=== PATIENT | male | born 1930 | race Caucasian/White ===

== ENCOUNTER 2016-06-08 07:12 | Day surgery (SDC) | payer MEDICARE ==
[2016-06-08] VITALS (10 sets, daily range): BP systolic 119–168; BP diastolic 57–89; PULSE 55–66; RESP 11–21; O2SAT 93–100
[~2016-06-08] VITALS: Ht 172.7 cm; Wt 72.7 kg
[~2016-06-08 07:12] MED LIST: CATHETER TIP IRRIGATION ONE; DONE5TAB30 PO; DORZ10DR18 OP; GLUC-91 PO; IBUP200C PO; Levofloxacin 500 mg/100 mL D5W IV ONE; MELA1TAB16 PO; MITOMYCIN IRRIGATION ONE; OMEG500C3 PO; ZOLP5TAB6 PO; sleep aid
[2016-06-08] MEDS ORDERED: fentaNYL-PF 50 mCg/mL 2 mL Inj ONE ×2 (07:13→11:46)
[2016-06-08] MEDS ORDERED: Propofol 10,000 mCg/mL 20 mL Inj ONE (07:13)
[2016-06-08] MEDS ORDERED: EPHEDrine/NS 5 mg/mL 5 mL Syringe ONE (07:13)
[2016-06-08] MEDS ORDERED: MetoCLOpramide 5 mg/mL 2 mL Inj ONE (07:13)
[2016-06-08] MEDS ORDERED: Dexamethasone 4 mg/mL Inj ONE (07:13)
[2016-06-08] MEDS ORDERED: Ondansetron 2 mg/mL 2 mL Inj ONE (07:13)
[2016-06-08] MEDS ORDERED: levoFLOXacin 500 mg/100 mL D5W Premix IV ONE (07:37)
[2016-06-08] MEDS ORDERED: CATHETER TIP IRRIGATION ONE (08:05)
[2016-06-08] MEDS ORDERED: MITOMYCIN IRRIGATION ONE ×2 (08:05→10:41)
[2016-06-08] MEDS: Lactated Ringer's 1,000 ML IV SCH ×4 (08:09→11:15)
[2016-06-08] MEDS ORDERED: Lactated Ringer's 500 ML IV PRN (09:40)
[2016-06-08] MEDS ORDERED: Phenylephrine 10,000 mCg/mL Inj IVPUSH PRN (09:40)
[2016-06-08] MEDS ORDERED: EPHEDrine Sulfate 50 mg/mL Inj IVPUSH PRN (09:40)
[2016-06-08] MEDS ORDERED: Ondansetron 2 mg/mL 2 mL Inj IVPUSH PRN (09:40)
[2016-06-08] MEDS ORDERED: Atropine 0.4 mg/mL Inj IVPUSH PRN (09:40)
[2016-06-08] MEDS ORDERED: hydrALAZINE 20 mg/mL Inj IVPUSH PRN (09:40)
[2016-06-08] MEDS ORDERED: MetoCLOpramide 5 mg/mL 2 mL Inj IVPUSH PRN (09:40)
[2016-06-08] MEDS ORDERED: HYDROmorphone 1 mg/mL Inj IVPUSH PRN (09:40)
[2016-06-08] MEDS ORDERED: Lactated Ringer's 1,000 ML IV SCH (09:40)
[2016-06-08] MEDS ORDERED: Labetalol 5 mg/mL 4 mL Inj IV PRN (09:40)
[2016-06-08] MEDS ORDERED: fentaNYL-PF 50 mCg/mL 2 mL Inj IVPUSH PRN (09:40)
--- NOTE | 2016-06-08 09:40 | PCM.HPANE ---
Patient Data Surgeon Admitting Provider: Attending Provider:Reynold Porras MD Primary Care Physician:Ralf Tripp MD Other Provider:[facility] Reason for Visit Bladder Tumor Ht/WT & BMI Height (Feet): 5 Height (Inches): 8.00 Weight (Kilograms): 72.700 Body Mass Index 24.00 Allergies Coded Allergies: No Known Allergies (Unverified , 10/25/12) Past Anesthesia History Anesthesia History: Denies:: Abnormal Airway, Anesthesia Reactions, Difficult Intubation, Fam Anesthesia Reaction, Fam Malignant Hypertherm, Malignant Hyperthermia Diabetes History Hx Diabetes?: No MRSA MRSA: No Medications Home Meds Incl Beta Dinesh: No Reported Medications Zolpidem 5 Mg Tablet5 Mg PO HS PRN For Insomnia Ref 0 06/07/16 Melatonin/Pyridoxine (Melatonin 5 mg Tablet)1 Each Tablet1 Each PO DAILY 06/07/16 Ibuprofen 200 Mg [id number] Mg PO QID PRN For Pain Ref 0 06/07/16 Gluc/Jaziel-MSM#1/Vit C/Festus/Bor (Djxtacb-Enqzy-CZI Complex Cplt)1 Each Tablet1 Each PO DAILY 06/07/16 [place]-3 Fatty Acids (Fish Oil)500 Mg [id number] Mg PO DAILY 06/07/16 Dorzolamide 10 Ml Drops1 Drop OP TID For Glaucoma #1 BOTTLE 06/07/16 Donepezil 5 Mg Tablet5 Mg PO HS Ref 0 06/07/16 Discontinued Reported Medications [sleep aid] No Conflict Check25 Mg HS PRN Insomnia 06/07/16 TMP-Sulfa DS-Expunged Drug, Do Not Renew! (Septra DS 160MG/800-Expunged Drug, Do Not Toy)1 Ea Tab1 Tab PO BID #20 TAB Dose on Trimethoprim component 10/25/12 Diphenhydramine Hcl (Sleep Aid)50 Mg/30 Ml Aalbaa78 Mg PO HSP 10/25/12 Tamsulosin-Expunged Drug, Do Not Renew! (Flomax-Expunged Drug, Do Not Renew!) 0.4 Mg Capsule0.4 Mg PO DAILY #30 CAP 10/25/12 Dorzolamide/Timolol/Pf (Cosopt Pf Eye Drops)1 Each Droperette1 Each OP TID 10/25/12 clonazePAM-Expunged Drug, Do Not Renew! 0.5 Mg Tablet0.5 Mg PO DAILY #30 TAB FOR ANXIETY 10/25/12 History History of ENT Problems?: Yes HEENT History: Denies:: Abnormal Airway Cataracts (hx of left vitrectomy) Difficult Intubation Dysphagia Hearing Problem TMJ (RT JAW "CLICK"-TMP ARTHRITIS) Denture Type: Full- Upper Full- Lower Hx of Heart Problems?: No Cardiovascular History: Denies:: AICD Atrial Fibrillation Chest Pain Hypertension Pacemaker Valvular Heart Disease Hx of Respiratory Problem?: No Respiratory History: Denies:: Asthma COPD Cough Hemoptysis Oxygen Administration Pneumonia Tuberculosis Use of C-PAP Machine Use of Inhalers / NEBS Hx Neurologic Problems?: Yes Neurological History: Positive for:: Dementia (mild on aricept) Denies:: CVA Headaches Multiple Sclerosis Parkinson's Disease Seizures TIA Other Neurological Pertinent: right foot numbness- per H+P note- related to spinal cord compression Hx of GI Problems?: No Gastrointestinal History: Denies:: Cirrhosis Diverticulitis Gastroesphageal Reflux Hiatal Hernia Rectal Bleeding Hx of Problems?: Yes Genitourinary History: Denies:: Kidney Stones Urinary Tract Infection Other Pertinent History: bladder tumor current admission problem Male Hx: Positive for:: Prostate Problems (hx of TURP) Denies:: Scrotal Mass Testicular Surgery Skin History: Denies:: History Skin Disorders? Pressure Ulcers Hx Musculoskeletal Problems?: No Musculoskeletal History: Positive for:: Osteoarthritis Denies:: Back Injury (C/OF BACK PAIN) Fibromyalgia Joint Replacement Musculoskeletal Trauma Systemic Lupus Hx of Psycho/Social Problems?: Yes Psycho Social History: Denies:: Anxiety Hx Depression Hx Surgeries?: Yes (cysto, turp, tonsil, left vitrectomy) Hx Any Other Health Problems?: Yes Other History: Denies:: Cancer Endocrine Disease Hospitalization Thyroid Disease History Blood Transfusions: Denies:: Blood Transfusions Hx Diabetes: No Hx Alcohol Use: NoHx Substance Use: NoHave You Smoked inLast 12 mo: No Stop/Bang S-Snoring: Do You Snore Loudly: No T-Tired: feel tired, fatigued: No O-Obsered: Observed not breath: No P-Blood Pressure: treated: No B- Body Mass Index > 35 kg/m2: No A- Age over 50: Yes N- Neck Large Circumference: No G- Gender Male: Yes TERI Total Score: 2 Risk Assessment Category Category 1A: Patient has history of documented sleep apnea, and HAS NOT received any narcotic, sedative or anesthesia administration during this stay. Category 1B: Patient has history of documented sleep apnea, and HAS received any narcotic , sedative or anesthesia administration during this stay Category 2: Patient has SUSPECTED Obstructive Sleep Apnea, and HAS received any narcotic , sedative or anesthesia administration during this stay. Category 3: Patient has SUSPECTED Obstructive Sleep Apnea and HAS NOT received narcotic, sedative or anesthesia administration during this stay. Category 4: Outpatient in Procedural Areas with known sleep apnea or who screen positive for High Risk via the STOP/BANG questionnaire. Exam Exam Vital Signs Vital Signs Date Time Temp Pulse Resp B/P Pulse Ox O2 Delivery O2 Flow Rate FiO2 06/08/16 07:45 36 65 16 150/84 94 Room Air General Appearance: Alert, Oriented X3, Cooperative, No Acute Distress HEENT/AIRWAY: MP 2 Lungs: Clear to Auscultation, Normal Air Movement Heart: Exam Unremarkable, Regular Rate/Rhythm, No Murmurs/Rubs/Gallops Plan Impression Patient chart reviewed, patient interviewed and anesthestic plan with risks, benefits, and alternatives discussed, and informed consent obtained. NPO Status: MN ASA Physical Status: ASA2 Mod Systemic Disease Anesthetic Plan: GA Bene/Risks/Altern/Consents: Yes HP Complete Prior to Induction: Yes Rogelio Dinh MD Jun 08, 2016 08:10
[2016-06-08] MEDS ORDERED: Belladonna Alk-Opium 60 mg Rectal Suppository RECTAL ONE ×2 (09:49→09:53)
--- NOTE | 2016-06-08 11:13 | PCM.SURGPO ---
Immediate Operative Note Date of Surgery: Jun 08, 2016 Pre Operative Diagnosis Bladder tumors, bladder lesions Post Operative Diagnosis Bladder tumors, bladder lesions, urethral stricture Procedure Cystoscopy, transurethral resection of bladder tumors (>5cm), bladder biopsies, dilation of urethral stricture, and Mitomycin intravesical instillation Surgeon and Green Tire Inspector Surgeon: Reynold Porras MD Assistants: None Findings Cystoscopy revealed mild bulbar urethral stricture, which was bluntly dilated using cystoscope. Cystoscopy revealed low-lying bladder tumors (L lateral wall bladder tumors x 2 (each approx. 1.5-2cm) and L superolateral wall bladder tumors x 2 (each approx. 1cm)), mildly edematous and mildly erythematous bladder lesions on R lateral wall and L posterior wall. Bladder tumors and bladder lesions were resected using bipolar loop electrocautery. B/L ureteral orifices were seen to be intact and well-preserved at the end of the case. Mitomycin intravesical instillation was performed at the end of the case. Complications There were no periprocedural complications identified. Surgical Specimen Removed: Yes Specimen sent to Pathology: Yes Surgical Specimen description: L lateral wall bladder tumors, L superolateral wall bladder tumors, R lateral wall bladder lesion, L posterior wall bladder lesion Anesthetic Administered: GA Grafts, Implants: Other (20F Coude Ventura catheter clamped) Output, Estimated Blood Loss: <5 Blood Admin during surgery: No Additional information Patient to be discharged home when stable, to return to see me in 5-7 days for post-op visit and trial of void. Reynold Porras MD Jun 08, 2016 11:13
--- NOTE | 2016-06-08 11:52 | PCM.ANEP2 ---
Post Anesthesia Evaluation ASA/CMS Post Anesthesia VS in Patient's Normal Range?: Yes Resp Stable; Airway Patent?: Yes CV Function & Hydration Stable: Yes Mental Status Recovered?: Yes Pain control Satisfactory?: Yes N/V Control Satisfactory?: Yes Rogelio Dinh MD Jun 08, 2016 11:52
--- NOTE | 2016-06-08 11:52 | PCM.ANEP1 ---
Post Anesthesia Phase 1 PACU Phase 1 Assessment Date of Service: Jun 08, 2016 Vital Signs Vital Signs Date Time Temp Pulse Resp B/P Pulse Ox O2 Delivery O2 Flow Rate FiO2 06/08/16 11:30 58 21 136/77 95 Room Air 06/08/16 11:15 36.0 64 18 145/79 93 Room Air 06/08/16 11:00 61 11 125/63 95 Simple Mask 8 06/08/16 10:55 64 15 133/88 96 Simple Mask 8 06/08/16 10:50 36.1 119/75 06/08/16 07:45 36 65 16 150/84 94 Room Air Anesthetic Administered: GA Level of Alertness: Awake, talking SPENCER's with Equal Strength: Yes Pain: No Nausea or Vomiting: No Oxygen Delivery: Simple Mask Lungs: Clear to Auscultation, Normal Air Movement Dermatome Level: Full Sensation Rogelio Dinh MD Jun 08, 2016 11:52
[2016-06-08] MEDS ORDERED: HYDROcodone-APAP 5-325 mg Tablet PO ONE (12:20)
--- NOTE | 2016-06-08 13:09 | PCM.DISURG ---
Surgical Discharge Instruction Date of Service Jun 08, 2016 Dates of Hospitalization Date of Hospital Admission Jun 08, 2016 Providers Admitting Physician: Reynold Porras MD Primary Care Physician: Ralf Tripp MD Attending Physician: Reynold Porras MD Discharge Diagnosis Discharge Diagnosis Bladder tumors, bladder lesions, urethral stricture Post Operative diagnosis Bladder tumors, bladder lesions, urethral stricture Diet Discharge Diet: No restrictions, Other (Drink 8-12 8oz. glasses (2-3 liters) of fluids as long as there is blood in the urine) Activity Discharge Activity-General: No restrictions, No driving while taking narcotic Dressing and Incisional Care Hygiene: May shower Additional Instructions Discharge Instructions Do not take any blood-thinning medications (including Aspirin, Ibuprofen, Motrin , Advil, Naproxen, Aleve, fish oil, and Vitamin E) for 7 days after surgery Follow Up Plan Follow-up Provider (F9): Reynold Porras MD Follow-up appointment: Days (5-7 days for post-op visit and trial of void) Call your provider for: Fever, Chills, Vomiting, Other (Non-draining Ventura catheter, pain uncontrolled by pain medications) Reynold Porras MD Jun 08, 2016 13:09
[2016-06-08] MEDS ORDERED: HYDROcodone-APAP 5-325 mg Tablet PO PRN (13:15)
--- NOTE | 2016-06-09 12:01 | PATH ---
SURGICAL PATHOLOGY Attending Physician:Reynold Porras MD CASE STATUS: Signed Out PATIENT NAME: PRIYANKA ALLAN PID: [id number] : 1930 DATE COLLECTED:06/08/2016 16:53 SPECIMEN: 1: Bladder, Biopsy 2: Bladder, Biopsy 3: Bladder, Biopsy 4: Bladder, Biopsy CLINICAL HISTORY: A: RIGHT LATERAL WALL BLADDER LESION B: LEFT POSTERIOR WALL BLADDER LESION C: LEFT SUPERIOR/LATERAL WALL BLADDER TUMORS D: LEFT LATERAL WALL BLADDER TUMORS FINAL DIAGNOSIS: 1.RIGHT LATERAL WALL URINARY BLADDER BIOPSY: NONSPECIFIC FIBROSIS WITH MILD CHRONIC INFLAMMATION. NO UROTHELIUM IDENTIFIED. 2.LEFT POSTERIOR WALL BLADDER BIOPSY: URINARY BLADDER TISSUE WITH PROMINENT NEOVASCULARIZATION OF THE LAMINA PROPRIA WITH ASSOCIATED PATCHY CHRONIC INFLAMMATION. NEGATIVE FOR ATYPIA AND MALIGNANCY. 3.LEFT SUPERIOR LATERAL WALL URINARY BLADDER BIOPSY: NEOVASCULARIZATION OF THE LAMINA PROPRIA WITH MILD CHRONIC INFLAMMATION AND ASSOCIATED PROMINENT LYMPHOID AGGREGATES WITHIN THE LAMINA PROPRIA. UROTHELIUM SHOWS NONSPECIFIC REACTIVE CHANGES, NEGATIVE FOR MALIGNANCY. 4.LEFT LATERAL WALL URINARY BLADDER BIOPSY: SEVERE ACUTE AND CHRONIC INFLAMMATION WITH PROMINENT LYMPHOID AGGREGATES AND NEOVASCULARIZATION OF THE LAMINA PROPRIA WITH ASSOCIATED REACTIVE UROTHELIAL CHANGES. NEGATIVE FOR MALIGNANCY AND SIGNIFICANT ATYPIA. ICD10 code Z85.51 NOTE: As part of a routine senior supplier quality engineer, Dr. Radha Mcgregor has also reviewed this case and agrees with the diagnosis. GROSS DESCRIPTION: The specimen is received in four formalin filled containers labeled with the patient's name. 1). The specimen is sublabeled "right lateral wall bladder lesion" and consists of a 0.3 x 0.3 x 0.2 CM portion of tissue which is entirely submitted in cassette 1A. 2). The specimen is sublabeled "left posterior wall bladder lesion" and consists of 4 portions of tissue which aggregate to 0.6 x 0.6 x 0.2 CM. The specimen is entirely submitted in cassette 2A. 3). The specimen is sublabeled "left superior lateral wall bladder tumors" and consists of 2 portions of tissue which aggregate to 0.3 x 0.3 x 0.3 CM. The specimen is entirely submitted in cassette 3A. 4). The specimen is sublabeled "left lateral wall bladder tumors" and consists of multiple portions of tissue which aggregate to 0.7 x 0.7 x 0.4 CM. The specimen is entirely submitted in cassette 4A. 06/08/2016 DAC MICRO DESCRIPTION: See diagnosis. ICD-9 CODES: CPT CODES: 1: 42875 2: 18646 3: 80354 4: 80928 Electronically Signed Out Kurt Resendiz MD [facility] [address], [place] [address] Technical component performed at [facility], [facility] [address], [place], [address]
--- NOTE | 2016-06-10 10:21 | OP ---
[address] [address] OPERATIVE REPORT PATIENT: PRIYANKA ALLAN : 1930 MR#: [id number] ADMIT: 06/08/2016 JOB ID: [id number] DATE OF SURGERY: 06/08/2016 PREOPERATIVE DIAGNOSIS(ES): Bladder tumors, bladder lesions. POSTOPERATIVE DIAGNOSIS(ES): Bladder tumors, bladder lesions, urethral stricture. PROCEDURE: Cystoscopy, transurethral resection of bladder tumors (greater than 5 cm), bladder biopsies, dilation of urethral stricture, and Mitomycin intravesical instillation. SURGEON: Reynold Porras MD TITLE I ASSISTANT: None. ANESTHESIA: General. ESTIMATED BLOOD LOSS: Less than 5 mL. SPECIMENS: Left lateral wall bladder tumors, left superolateral wall bladder tumors, right lateral wall bladder lesion, left posterior wall bladder lesion. DRAINS: A 20-[place] coude Ventura catheter, clamped. COMPLICATION: None. CONDITION: Stable. FINDINGS: Cystoscopy revealed mild bulbar urethral stricture which was bluntly dilated using the cystoscope. Cystoscopy revealed low-lying bladder tumors (left lateral wall bladder tumors x 2 (each approximately 1.5-2 cm) and left superolateral wall bladder tumors x 2 (each approximately 1 cm)) and mildly edematous and mildly erythematous bladder lesions on right lateral wall and left posterior wall. Bladder tumors and bladder lesions were resected using bipolar loop electrocautery. Bilateral ureteral orifices were seen to be intact and well-preserved at the end of the case. Mitomycin intravesical instillation was performed at the end of the case. INDICATIONS: The patient is a 86-year-old male with history of bladder cancer, found on office cystoscopy to have bladder tumors and bladder lesions. The patient now presents for cystoscopy, transurethral resection of bladder tumors, bladder biopsies and Mitomycin intravesical instillation. DESCRIPTION OF PROCEDURE: The patient was brought to the operating room and placed supine on the operating room table. The patient was given Levaquin IV antibiotics. Sequential compression device boots were placed. General anesthesia was administered. The patient was brought down into the dorsal lithotomy position. The patient was prepped and draped in a standard surgical fashion. A 26-[place] continuous flow resectoscope was attempted to be passed through the urethral meatus and into the distal urethra. However, this was unable to be done. The urethral meatus was dilated in a serial fashion using [place] urethral sounds, starting at 20-[place] in a stepwise serial fashion up to 30- Northern Irish. The 26-[place] continuous flow resectoscope was subsequently able to be passed through the urethral meatus and into the distal urethra without difficulty. Cystoscopy revealed a mild bulbar urethral stricture which was able to be bluntly dilated using the continuous flow resectoscope. Cystoscopy revealed mild-to- moderate bilobar prostatic hypertrophy, moderately trabeculated bladder, bilateral ureteral orifices in normal position, low-lying bladder tumors (left lateral wall bladder tumors x 2 (each approximately 1.5-2 cm) and left superolateral wall bladder tumors x 2 (each approximately 1 cm)), and mildly edematous and mildly erythematous bladder lesions on the right lateral wall and left posterior wall. All of the bladder tumors and bladder lesions were resected using bipolar loop electrocautery and sent to Pathology for permanent specimen. The bases of the bladder tumor resected areas and bladder biopsied areas including the bases of the bladder tumor resected areas and the bases of the bladder biopsied areas including normal surrounding bladder mucosa were fulgurated using bipolar loop electrocautery. Excellent hemostasis was achieved. No evidence for bladder perforation was seen. Bilateral ureteral orifices were seen to be intact and well-preserved at the end of the case. Thus, transurethral resection of bladder tumors and bladder biopsies were performed. All specimens were sent to pathology for permanent specimen. The continuous-flow resectoscope was removed from the patient. A 20-[place] coude Ventura catheter was placed through the urethra and into the bladder without difficulty. Ventura catheter balloon was inflated with 10 mL of sterile water. Ventura catheter was initially placed to straight drainage, and the bladder was allowed to drain completely via the Ventura catheter. Then Mitomycin intravesical instillation was performed by instilling Mitomycin solution into the bladder via the Ventura catheter. Ventura catheter was clamped. Skin was cleaned and dried. The patient was placed in supine position. The patient was awakened from general anesthesia and transferred to the recovery room in stable condition. The patient tolerated the procedure well. Plan is for the Ventura catheter to be unclamped after one hour to allow the Mitomycin solution to drain out of the bladder, for the patient to be discharged home when stable, and for the patient to return to see me in the office in 5-7 days for postoperative visit and trial of void. SELAM
== END 2016-06-08 23:59 | disposition home or self-care (01) ==
LOC: SAS 07:12
PROVIDERS: ATTEND Urology
DX: N30.00 Acute cystitis without hematuria (principal); N30.20 Other chronic cystitis without hematuria; N35.9 Urethral stricture, unspecified; D30.3 Benign neoplasm of bladder
CPT/HCPCS: 52240; J1100; J2405; J2765; J7120; J9280

== ENCOUNTER 2016-06-22 15:02 | Emergency (ER) | payer MEDICARE ==
[~2016-06-22] VITALS: Ht 172.7 cm; Wt 75.0 kg
[~2016-06-22 15:02] MED LIST changes: -CATHETER TIP IRRIGATION ONE; -Levofloxacin 500 mg/100 mL D5W IV ONE; -MITOMYCIN IRRIGATION ONE; -sleep aid
[2016-06-22 15:04] VITALS: BP 133/74; PULSE 87; RESP 16; O2SAT 96
[2016-06-22 16:18] LABS: BASOPHILS % (AUTO) 0.1 % (0-3); EOSINOPHILS % (AUTO) 0.1 % (0-5); MONOCYTES % (AUTO) 14.2 % (4-12); Mean Corpuscular Hemoglobin 29.6 pg (27.0-35.0); Mean Corpuscular Volume 89.6 fL (81-100); NEUTROPHILS % (AUTO) 79.1 % (40-74); Platelet Count 216 bil/L (150-400)
[2016-06-22 16:38] LABS: TROPONIN T < 0.010 ug/L (0.0-0.011)
[2016-06-22 16:42] LABS: APPEARANCE,URINE HAZY (CLEAR,HAZY); COLOR,URINE YELLOW (YELLOW); OCCULT BLOOD,URINE MODERATE (NEGATIVE)
[2016-06-22 16:43] LABS: UROBILINOGEN,URINE NORMAL (NORMAL)
[2016-06-22 16:48] LABS: Magnesium 2.2 mg/dL (1.6-2.6)
--- NOTE | 2016-06-22 16:48 | ED.REPORT ---
HPI-General Illness Date of Service Jun 22, 2016 ED Provider: Kurt Ac MD Pt is an 86 y/o male presenting to the ED from Urgent Care due to fever onset 4 days ago. Pt c/o associated generalized weakness, fatigue, chills. He denies abdominal pain, nausea, vomiting, increased confusion, dysuria, urinary frequency, flank pain. He was treated for bladder cancer last month by Urologist is Dr. Porras and had his [place] catheter removed 1 week ago. He has not been treated for a UTI recently. Denies abdominal surgeries. Nursing Notes Stated Complaint: SORE THROAT Chief Complaint: FLU/Cold Symptoms Nursing Notes Reviewed: Yes Allergies: Coded Allergies: No Known Allergies (Unverified , 06/22/16) Scheduled Cephalexin (Cephalexin) 500 Mg Capsule 500 MG PO QID Donepezil (Donepezil) 5 Mg Tablet 5 MG PO HS Dorzolamide (Dorzolamide) 10 Ml Drops 1 DROP OP TID Gluc/Jaziel-MSM#1/Vit C/Festus/Bor (Origssd-Dvdcy-BSO Complex Cplt) 1 Each Tablet 1 EACH PO DAILY Melatonin/Pyridoxine (Melatonin 5 mg Tablet) 1 Each Tablet 1 EACH PO DAILY [place]-3 Fatty Acids (Fish Oil) 500 Mg Capsule 500 MG PO DAILY Scheduled PRN Ibuprofen (Ibuprofen) 200 Mg Capsule 200 MG PO QID PRN PRN For Pain Zolpidem (Zolpidem) 5 Mg Tablet 5 MG PO HS PRN PRN For Insomnia General Time Seen by MD: 15:37 Chief Complaint Fever Hx Obtained From: Patient Arrived By: Walk-in Sudden in Onset?: No Onset Occurred: 4 days ago Symptom Duration: Since onset Severity: Current: No pain currently Severity: Maximum: No pain Recent Healthcare: Recent doctor visit Past Medical History Past Medical History Mild dementia Arthritis Bladder cancer s/p therapy Past Surgical History Cataracts TURP Cystoscopy Tonsillectomy Left vitrectomy Smoking History Never Smoker Social History Alcohol Use: Denies alcohol use Drug Use: Denies drug use Ambulatory Status Independent Review of Systems Full Review of Systems Constitutional: Reports: Chills, Fatigue, Fever, Weakness - generalized GI: Denies: Abdominal pain, Nausea, Vomiting Male: Denies Dysuria, Denies Flank pain, Denies Urinary frequency Neurologic: Denies: Confusion Complete sys rev & neg: except as marked. Physical Exam Vital Signs Vital Signs Date Time Temp Pulse Resp B/P Pulse Ox O2 Delivery O2 Flow Rate FiO2 06/22/16 19:32 37.1 76 18 136/67 98 Room Air 06/22/16 16:53 37.6 86 17 116/86 94 Room Air 06/22/16 15:04 38.9 87 16 133/74 96 Room Air Initial VS: Reviewed, Vital signs abnormal Head / Eyes: Atraumatic, Normocephalic, PERRL Respiratory: Breath sounds normal, Clear to auscultation, No respiratory distress Cardiovascular: Regular rate & rhythm, Heart sounds normal, Intact distal pulses Extremities: Vascular intact, Neuro intact, No swelling, No tenderness Neurologic: Alert, Oriented, Nonfocal Psychiatric: Mood/affect normal, Behavior normal, Normal thought content General/Constitutional: Awake, Alert, No acute distress, Cooperative, Not toxic appearing Febrile ENT: Atraumatic, Airway patent, Mucous membranes moist, Pharynx NL Neck: Atraumatic, Supple, No meningismus, Full range of motion, No adenopathy Abdomen: Atraumatic, Soft, No guarding, No rebound, BS normoactive, No distention, No palpable mass Tenderness/Guarding/Rebound: Positive: Tender RUQ... (Mild) Skin: Atraumatic, No rash, Warm, Intact Color / Condition: Positive: Diaphoresis present (mild) Interpretation & Diagnostics Interpretation & Diagnostics: Abdomen US: IMPRESSION: No acute abnormality although the pancreas is not well seen; recommend clinical correlation, and with pancreatic enzymes as clinically required Normal appearance of the gallbladder. Dictated by: Michael Castañeda M.D. on 06/22/2016 at 20:52 Approved by: Michael Castañeda M.D. on 06/22/2016 at 20:54 Lab Results Interpretation Result Diagram: 06/22/16 1600 06/22/16 1600 Test 06/22/16 16:00 White Blood Count 13.8th/mm3 (3.8-10.1) Red Blood Count 4.53mil/mm3 (4.40-5.80) Hemoglobin 13.4g/dL (13.8-17.2) Hematocrit 40.6% (41.0-50.0) Mean Corpuscular Volume 89.6fL (81-100) Mean Corpuscular Hemoglobin 29.6pg (27.0-35.0) Mean Corpuscular Hemoglobin Concent 33.0% (32.0-37.0) Red Cell Distribution Width 13.2% (12.3-15.4) Platelet Count 216bil/L (150-400) Neutrophils (%) (Auto) 79.1% (40-74) Lymphocytes (%) (Auto) 5.3% (14-46) Monocytes (%) (Auto) 14.2% (4-12) Eosinophils (%) (Auto) 0.1% (0-5) Basophils (%) (Auto) 0.1% (0-3) Urine Color Yellow (YELLOW) Urine Appearance Hazy (CLEAR,HAZY) Urine pH 6.0 (5.0-8.0) Urine Specific [place] 1.010 (1.003-1.035) Urine Protein 30mg/dL (NEG,TRACE) Urine Glucose (UA) Negativemg/dL (NEGATIVE) Urine Ketones Negativemg/dL (NEGATIVE) Urine Occult Blood Moderate (NEGATIVE) Urine Nitrite Positive (NEGATIVE) Urine Bilirubin Negative (NEGATIVE) Urine Urobilinogen Normalmg/dL (NORMAL) Urine Leukocyte Esterase Large (NEGATIVE) Urine RBC 3-10/hpf (0-2) Urine WBC >50/hpf (0-5) Urine Epithelial Cells Few/hpf (NONE-MOD) Urine Crystals None seen (NONE SEEN) Urine Bacteria Many/hpf (NONE-FEW) Urine Hyaline Casts None/lpf (NONE) Urine Granular Casts None seen (NONE SEEN) Urine Waxy Casts None seen (NONE SEEN) Urine Red Blood Cell Casts None seen (NONE SEEN) Urine White Blood Cell Casts None seen (NONE SEEN) Urine Mucus None seen (None Seen) Urine Trichomonas None seen (NONE SEEN) Urine Yeast None (NONE SEEN) Urinalysis Comment None Urine Culture Reflexed Indicated Sodium Level 135mEq/L (134-144) Potassium Level 4.0mEq/L (3.5-5.2) Chloride Level 99mEq/L (97-108) Carbon Dioxide Level 23mmol/L (18-29) Blood Urea Nitrogen 16mg/dL (8-27) Creatinine 0.65mg/dL (0.76-1.27) Estimat Glomerular Filtration Rate 123mL/min (>59) Glucose Level 172mg/dL (60-99) Lactic Acid Level 1.2mmol/L (0.4-2.0) Calcium Level 8.3mg/dL (8.5-10.1) Magnesium Level 2.2mg/dL (1.6-2.6) Total Bilirubin 0.9mg/dL (0.0-1.2) Aspartate Amino Transf (AST/SGOT) 40U/L (0-50) Alanine Aminotransferase (ALT/SGPT) 87U/L (0-44) Alkaline Phosphatase 232U/L (25-160) Troponin T < 0.010ug/L (0.0-0.011) Total Protein 6.8g/dL (6.4-8.4) Albumin 3.2g/dL (3.4-5.0) Lab Results Interpretation: Flu screen negative ECG Interpretation ECG Interpretation: Sinus rhythm rate 85 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 Dictated by: Barbara San MD, PhD on 06/22/2016 at 16:37 Approved by: Barbara San MD, PhD on 06/22/2016 at 16:37 View: Portable, 1 view Interpretation / Wet Read by: Interpret - Radiologist Re-Eval/Medical Decision Med Decision/Clinical Course 86-year-old with a fever. Signs are reassuring, lactate is normal, given Rocephin 2 g IV for urinary tract infection. Patient would like to go home I believe this is reasonable. Source of Hx: Old records Time of Eval: 19:43 Patient Status: Condition improved Re-Evaluation/Progress Note: Pt rechecked, who is feeling well and prepared for discharge. Vitals are reassuring. Diagnosis and the plan for discharge are discussed. The pt understands and agrees with the plan. All questions are addressed at this time. Counseled Regarding: Diagnosis, Lab results, Need for follow-up, When/why to return to ED Discharge & Departure Primary Impression: Urinary tract infection Urinary tract infection type: site unspecified Hematuria presence: without hematuria Qualified Code: N39.0 - Urinary tract infection, site not specified Additional Impression: Fever Disposition: Home Discharge Condition All VS Reviewed: Yes Condition: Stable Patient Instructions: Urinary Tract Infection in Men (ED) Additional Instructions: Emergency Department evaluation included, examination labs chest x-ray and abdominal ultrasound. We have identified a urinary tract infection as a source of fever. IV antibiotics to cover her for 24 hours were given intravenously. Start oral antibiotics tomorrow afternoon, take cephalexin as prescribed. Rest and get adequate fluids. Use Tylenol and/or ibuprofen as needed to control fevers. Return emergency Department for uncontrolled vomiting, abdominal pain, flank pain, difficulty breathing generalized weakness or other new concerning symptoms. Referrals: Ralf Tripp MD (PCP) Ria Attestation Portions of this note were transcribed by Sukumar Lechuga. Dr. Yashira Starr personally performed the history, physical exam and medical decision-making; I reviewed and confirmed the accuracy of the information in the transcribed note. Signed by Ria Earl, 06/22/16 - 1700 Portions of this note were transcribed by Damir Rosales I, Dr. Slack personally performed the history, physical exam and medical decision-making; I reviewed and confirmed the accuracy of the information in the transcribed note. Signed by: Ria Calvo, 06/22/16 and 20:57. copies to: Ralf Tripp MD, Donald L MD Jun 22, 2016 16:48 SUKUMAR LECHUGA Jun 22, 2016 16:52 DAMIR ROSALES Jun 22, 2016 19:53
--- NOTE | 2016-06-22 16:48 | DRSVH ---
PROCEDURE: X-RAY CHEST ONE VIEW, PORTABLE ([id number]) INDICATIONS: fever TECHNIQUE: One view of the chest was acquired. COMPARISON: [facility], CR, XR CHEST 2VW, 06/07/2016, 14:51. FINDINGS: Surgical changes and devices: None. Lungs and pleura: No pleural effusions or pneumothorax. Lungs are clear. Mediastinum: Mediastinal contours appear normal. Heart size is normal. Bones and chest wall: No suspicious bony lesions. Overlying soft tissues appear unremarkable. IMPRESSION: No acute cardiopulmonary disease process. Dictated by: Barbara San MD, PhD on 06/22/2016 at 16:37 Approved by: Barbara San MD, PhD on 06/22/2016 at 16:37
[2016-06-22 16:53] VITALS: BP 116/86; PULSE 86; RESP 17; O2SAT 94
[2016-06-22] MEDS ORDERED: cefTRIAXone Inj 2,000 MG in Dextrose 5% Minibag Plus 50 ML IV ONE (17:30)
[2016-06-22] MEDS ORDERED: Ondansetron 2 mg/mL 2 mL Inj IVPUSH PRN (18:10)
[2016-06-22] MEDS ORDERED: 0.9% Sodium Chloride 1,000 ML IV ONE (18:10)
[2016-06-22 19:32] VITALS: BP 136/67; PULSE 76; RESP 18; O2SAT 98
[2016-06-22] MEDS ORDERED: CEPH500C PO (19:48)
--- NOTE | 2016-06-22 20:54 | DRSVH ---
PROCEDURE: US ABDOMEN INDICATIONS: RUQ tender, fever eval gallbladder and biliary veronica TECHNIQUE: Real-time scanning was performed of the abdominal and retroperitoneal organs, with image documentatio n. COMPARISON: None. FINDINGS: Liver length: 15.61 cm Gallbladder Wall Thickness: 1.50 mm CHD: 3-5 mm CBD: 4.50 mm Spleen length: 12.47 cm Right kidney length: 12.96 cm Left kidney length: 11.53 cm Aorta(Proximal): 2.38 cm Aorta(Mid): 1.99 cm Aorta(Distal): 1.70 cm RCIA: 8.90 mm LCIA: 1.11 cm Liver: Liver is normal in size and homogeneous in echotexture. Gallbladder: Unremarkable Biliary ducts: Intrahepatic bile ducts are non-dilated. Extrahepatic bile duct caliber is normal. Normal is 6-7 mm or less in diameter, or 10 mm or less post-cholecystectomy. Pancreas: Pancreas obscured by shadowing bowel gas Spleen: Spleen is normal in size and homogeneous in echotexture. Kidneys: Kidneys are normal in size and echotexture. No hydronephrosis or nephrolithiasis. No haley d masses. Incidental right renal column of Cornelius seen Aorta: Visualized aorta is normal in caliber at less than 3 cm. Iliacs: Proximal common iliac arteries are normal in caliber at less than 2.5 cm. IVC: Intrahepatic inferior vena cava is patent. Miscellaneous: No free abdominal fluid. IMPRESSION: No acute abnormality although the pancreas is not well seen; recommend clinical correlation, and with pancreatic enzymes as clinically required Normal appearance of the gallbladder. Dictated by: Michael Castañeda M.D. on 06/22/2016 at 20:52 Approved by: Michael Castañeda M.D. on 06/22/2016 at 20:54
== END 2016-06-22 20:12 | disposition home or self-care (01) ==
LOC: SED 15:02
DX: N39.0 Urinary tract infection, site not specified (principal); B96.20 Unspecified Escherichia coli [E. coli] as the cause of diseases classified elsewhere
CPT/HCPCS: 36415; 71010; 76700; 80053; 81000; 83605; 83735; 84484; 85025; 87040; 87077; 87086; 87088; 87186; 87804; 93005; 96361; 96365; 99285; J0696; J7030